=== PATIENT | female | born 1950 | race Caucasian/White ===

== ENCOUNTER 2023-02-03 10:06 | Inpatient (IN) | payer MEDICARE ==
[~2023-02-03] VITALS: Ht 162.6 cm; Wt 88.0 kg
[2023-02-03] MEDS ORDERED: IPRATROPIUM NEB FS 0.5 MG/2.5 ML AMPUL.NEB NEB ONE (10:30)
[2023-02-03] MEDS ORDERED: ALBUTEROL FS 2.5 MG/3 ML VIAL.NEB CONTNEB ONE (10:30)
[2023-02-03] MEDS ORDERED: methylPREDNISolone SOD SUCC 125 MG/2ML VIAL IV ONE (10:30)
[2023-02-03] MEDS ORDERED: methylPREDNISolone SOD SUCC 125 MG/2ML VIAL ONE (10:33)
[2023-02-03 11:02] LABS: BASOPHILS % (AUTO) 0.1 % (0.0-2.0); EOSINOPHILS % (AUTO) 0.1 % (0.0-6.0); HEMATOCRIT 27 % (33-45); MEAN CORPUSCULAR HGB CONC 34 g/dl (31.0-36.0); MEAN CORPUSCULAR VOLUME 91 fL (82-100); MONOCYTES # (AUTO) 1.4 K/uL (0.1-1.30); MONOCYTES % (AUTO) 14.9 % (2.0-12.0); NEUTROPHILS % (AUTO) 73.9 % (43.0-81.0); PLATELET COUNT (AUTO) 271 K/uL (150-450); RED BLOOD CELL COUNT(AUTO) 2.92 MIL/uL (4.0-5.2); WHITE BLOOD COUNT (AUTO) 9.5 K/uL (4.3-11.0)
[2023-02-03 11:03] LABS: CARBON DIOXIDE 22 mmol/L (21-32); CHLORIDE 99 mmol/L (98-107); CREATININE 2.1 mg/dL (0.6-1.3); GLUCOSE 214 mg/dL (74-106); POTASSIUM 4.1 mmol/L (3.5-5.1); SODIUM SERUM 135 mmol/L (136-145); UREA NITROGEN, BLOOD 45 mg/dL (7-18)
[2023-02-03] MEDS ORDERED: ALBUTEROL FS 2.5 MG/3 ML VIAL.NEB ONE (11:38)
[2023-02-03] MEDS ORDERED: DEXTROSE 50%-WATER 50 ML DISP.SYRIN IV PRN (12:00)
[2023-02-03] MEDS ORDERED: ACETAMINOPHEN 325 MG TABLET PO PRN (12:00)
[2023-02-03] MEDS ORDERED: MAGNESIUM HYDROXIDE 30 ML UDC PO PRN (12:00)
[2023-02-03] MEDS ORDERED: Z GUARD REMEDY 4 OZ OINT TP PRN (12:00)
[2023-02-03] MEDS ORDERED: MAG HYDROX/AL HYDROX/SIMETH 30 ML UDC PO PRN (12:00)
[2023-02-03] MEDS ORDERED: ONDANSETRON HCL/PF 4 MG/2 ML VIAL IVP PRN (12:00)
[2023-02-03] MEDS ORDERED: ASPIRIN 81 MG TAB.CHEW PO STA (12:57)
[2023-02-03] MEDS ORDERED: FUROSEMIDE 40 MG/4 ML VIAL IV STA (12:57)
[2023-02-03 14:30] VITALS: BP 143/48
[2023-02-03] MEDS ORDERED: CLOP75TA15 PO (14:44)
[2023-02-03] MEDS ORDERED: DEXL60CA3 PO (14:44)
[2023-02-03] MEDS ORDERED: MODAFINIL PO (14:44)
[2023-02-03] MEDS ORDERED: AMLO-212 PO (14:44)
[2023-02-03] MEDS ORDERED: CARB1TAB21 PO (14:44)
[2023-02-03] MEDS ORDERED: EZET10TA32 PO (14:44)
[2023-02-03] MEDS ORDERED: FURO40TA5 PO (14:44)
[2023-02-03] MEDS ORDERED: PREG-57 PO (14:44)
[2023-02-03] MEDS ORDERED: LATA2.5D15 EACHEYE (14:44)
[2023-02-03] MEDS ORDERED: TIMO5DRO18 RIGHTEYE (14:44)
[2023-02-03] MEDS ORDERED: LISI40TA13 PO (14:44)
[2023-02-03] MEDS ORDERED: BUPR-54 PO (14:44)
[2023-02-03] MEDS ORDERED: SERT50TA12 PO (14:44)
[2023-02-03] MEDS ORDERED: ASPI-1420 PO (14:44)
[2023-02-03] MEDS ORDERED: INSULIN PUMP SQ (14:45)
[2023-02-03] MEDS: FUROSEMIDE 40 MG/4 ML VIAL IV SCH ×3 (14:57→21:51)
[2023-02-03] MEDS: NITROGLYCERIN PACKET 1 GM PACKET TD SCH ×2 (15:03→21:52)
[2023-02-03] MEDS: BLOOD SUGAR DIAGNOSTIC 1 EACH STRIP VI SCH ×3 (17:12→22:17)
[2023-02-03] MEDS: INSULIN REGULAR, HUMAN 100 UNIT/ML 3 ML VIAL SQ PRN (17:13)
[2023-02-03] MEDS ORDERED: PREGABALIN 25 MG CAPSULE PO SCH (18:00)
[2023-02-03 20:00] VITALS: BP 152/60
[2023-02-03] MEDS ORDERED: GUAIFENESIN 300 MG/15 ML UDC PO PRN (20:30)
[2023-02-03] MEDS ORDERED: ALBUTEROL FS 2.5 MG/3 ML VIAL.NEB NEB PRN (20:30)
[2023-02-03] MEDS: IPRATROPIUM NEB FS 0.5 MG/2.5 ML AMPUL.NEB NEB PRN (20:42)
[2023-02-03] MEDS: *INSULIN REGULAR(HUMULIN R)HUM 100 UNIT/ML VIAL SQ PRN (22:25)
[2023-02-04] VITALS (44 sets, daily range): BP systolic 78–195; BP diastolic 34–109
[2023-02-04] MEDS: NITROGLYCERIN PACKET 1 GM PACKET TD SCH ×3 (05:11→21:34)
[2023-02-04 05:57] LABS: BASOPHILS % (AUTO) 0.3 % (0.0-2.0); HEMATOCRIT 27 % (33-45); HEMOGLOBIN 8.8 g/dL (11.5-14.8); LYMPHOCYTES % (AUTO) 12.1 % (20.0-44.0); MEAN CORPUSCULAR HGB CONC 33 g/dl (31.0-36.0); MEAN CORPUSCULAR VOLUME 94 fL (82-100); MONOCYTES % (AUTO) 11.7 % (2.0-12.0); NEUTROPHILS # (AUTO) 6.3 K/uL (1.8-8.9); NEUTROPHILS % (AUTO) 75.9 % (43.0-81.0); PLATELET COUNT (AUTO) 262 K/uL (150-450); RED BLOOD CELL COUNT(AUTO) 2.91 MIL/uL (4.0-5.2); WHITE BLOOD COUNT (AUTO) 8.3 K/uL (4.3-11.0)
[2023-02-04 06:11] LABS: ABG BASE EXCESS -5.6 mmol/L; ABG OXYGEN SATURATION 91.3 % (92.0-98.5); ABG PCO2 33.1 mmHg (35.0-45.0); ABG PH 7.373 (7.350-7.450); ABG PO2 66.7 mmHg (75.0-100.0); AaDO2 613.2 mmHg; COHb 0.3 % (0.5-1.5); MetHb 0.2 % (0.0-1.5); O2Hb 90.8 % (94.0-97.0); SITE, ABG Right Radial
[2023-02-04] MEDS: INSULIN REGULAR, HUMAN 100 UNIT/ML 3 ML VIAL SQ PRN ×2 (06:25→17:14)
[2023-02-04 06:27] LABS: CARBON DIOXIDE 22 mmol/L (21-32); CHLORIDE 99 mmol/L (98-107); CREATININE 2.7 mg/dL (0.6-1.3); MAGNESIUM 2.1 mg/dL (1.8-2.4); POTASSIUM 4.6 mmol/L (3.5-5.1); SODIUM SERUM 134 mmol/L (136-145); UREA NITROGEN, BLOOD 63 mg/dL (7-18)
[2023-02-04 06:44] LABS: GLUCOSE 367 mg/dL (74-106)
[2023-02-04] MEDS: BLOOD SUGAR DIAGNOSTIC 1 EACH STRIP VI SCH ×4 (07:31→21:43)
[2023-02-04] MEDS ORDERED: VANCOMYCIN 1.5 GM in IV D5W 500 ML IV ONE (08:00)
[2023-02-04] MEDS: IV NS 0.9% 250 ML IV PRN (08:39)
[2023-02-04] MEDS: ASPIRIN EC 81 MG TABLET.DR PO SCH (08:43)
[2023-02-04] MEDS: CARBIDOPA/LEVODOPA 25/100 MG 1 UDTAB PO SCH ×2 (08:44→12:07)
[2023-02-04] MEDS: BUPROPION XL 150 MG TAB.ER.24 PO SCH (08:44)
[2023-02-04] MEDS ORDERED: LISINOPRIL (20MG) 20 MG TABLET PO SCH (09:00)
[2023-02-04] MEDS ORDERED: CLOPIDOGREL BISULFATE 75 MG TABLET PO SCH (09:00)
[2023-02-04] MEDS ORDERED: AMLODIPINE BESYLATE 5 MG TABLET PO SCH (09:00)
[2023-02-04] MEDS: CEFEPIME 2 GM in IV D5W 100 ML IV SCH (09:00)
[2023-02-04] MEDS ORDERED: SERTRALINE HCL 50 MG TABLET PO SCH (09:00)
[2023-02-04] MEDS ORDERED: EZETIMIBE 10 MG TABLET PO SCH (09:00)
[2023-02-04] MEDS ORDERED: LEVOFLOXACIN 750 MG /D5W 150ML 150 ML IV SCH (11:00)
[2023-02-04 11:12] LABS: THYROID STIMULATING HORMONE 1.664 uIU/mL (0.358-3.74)
[2023-02-04] MEDS: IPRATROPIUM NEB FS 0.5 MG/2.5 ML AMPUL.NEB NEB PRN (11:31)
[2023-02-04] MEDS ORDERED: NOREPINEPHRINE 32 MG in IV NS 0.9% 218 ML IV PRN (14:00)
[2023-02-04] MEDS ORDERED: PROPOFOL 100 ML IV PRN (14:00)
[2023-02-04] MEDS ORDERED: PHARMACY TO CHANGE PO MEDS TO GT/NG XX PRN (15:00)
[2023-02-04] MEDS: PROPOFOL 100 ML IV PRN ×2 (15:07→21:52)
[2023-02-04] MEDS ORDERED: GUAIFENESIN 300 MG/15 ML UDC GT PRN (15:12)
[2023-02-04] MEDS ORDERED: LISINOPRIL (20MG) 20 MG TABLET GT SCH (15:12)
[2023-02-04] MEDS ORDERED: MAGNESIUM HYDROXIDE 30 ML UDC GT PRN (15:13)
[2023-02-04] MEDS ORDERED: MAG HYDROX/AL HYDROX/SIMETH 30 ML UDC GT PRN (15:13)
[2023-02-04] MEDS ORDERED: ACETAMINOPHEN 650 MG/20.3 ML UDC PO PRN (15:30)
[2023-02-04] MEDS: ACETAMINOPHEN 650 MG/20.3 ML UDC GT PRN (15:39)
[2023-02-04] MEDS ORDERED: ETOMIDATE 2 MG/ML VIAL IV ONE (16:32)
[2023-02-04] MEDS ORDERED: ROCURONIUM BROMIDE 50 MG/5 ML IV ONE (16:32)
[2023-02-04 16:57] LABS: ABG BASE EXCESS -11.1 mmol/L; ABG PCO2 51.4 mmHg (35.0-45.0); ABG PH 7.149 (7.350-7.450); ABG PO2 78.2 mmHg (75.0-100.0); AaDO2 583.4 mmHg; COHb 0.1 % (0.5-1.5); MetHb 0.2 % (0.0-1.5); O2Hb 90.7 % (94.0-97.0); PEEP,BG 18 cm H2O; SITE, ABG Right Radial; VT, ABG 500 mL
[2023-02-04] MEDS: CARBIDOPA/LEVODOPA 25/100 MG 1 UDTAB GT SCH (17:24)
[2023-02-04] MEDS: PREGABALIN 25 MG CAPSULE GT SCH (17:24)
[2023-02-04 19:31] LABS: ABG BASE EXCESS -12.1 mmol/L; ABG OXYGEN SATURATION 95.4 % (92.0-98.5); ABG PCO2 33.5 mmHg (35.0-45.0); ABG PH 7.244 (7.350-7.450); AaDO2 588.5 mmHg; MetHb 0.2 % (0.0-1.5); O2Hb 95.2 % (94.0-97.0); PEEP,BG 18 cm H2O; SITE, ABG Right Radial
[2023-02-04] MEDS: *INSULIN REGULAR(HUMULIN R)HUM 100 UNIT/ML VIAL SQ PRN (21:49)
[2023-02-04] MEDS ORDERED: INSULIN GLARGINE, 100 UNIT/ML CARTRIDGE SQ SCH (22:00)
[2023-02-05] VITALS (84 sets, daily range): BP systolic 54–199; BP diastolic 35–106
[2023-02-05] MEDS: PROPOFOL 100 ML IV PRN ×8 (02:22→22:32)
[2023-02-05 03:50] LABS: CALCIUM, SERUM 9.1 mg/dL (8.5-10.1); CARBON DIOXIDE 19 mmol/L (21-32); CHLORIDE 95 mmol/L (98-107); CREATININE 3.9 mg/dL (0.6-1.3); POTASSIUM 4.8 mmol/L (3.5-5.1); SODIUM SERUM 130 mmol/L (136-145); UREA NITROGEN, BLOOD 77 mg/dL (7-18)
[2023-02-05 04:12] LABS: GLUCOSE 464 mg/dL (74-106)
[2023-02-05] MEDS: NITROGLYCERIN PACKET 1 GM PACKET TD SCH ×3 (04:46→21:28)
[2023-02-05] MEDS ORDERED: DEXTROSE 50%-WATER 50 ML DISP.SYRIN IV PRN (05:30)
[2023-02-05] MEDS ORDERED: VANCOMYCIN 500 MG in IV D5W 100 ML IV PRN (06:00)
[2023-02-05] MEDS: BLOOD SUGAR DIAGNOSTIC 1 EACH STRIP IN SCH ×4 (07:36→23:59)
[2023-02-05] MEDS: INSULIN REGULAR, HUMAN 100 UNIT/ML 3 ML VIAL SQ PRN (07:42)
[2023-02-05] MEDS ORDERED: IV 1/2NS 1000 ML 1,000 ML IV PRN (08:00)
[2023-02-05] MEDS: CARBIDOPA/LEVODOPA 25/100 MG 1 UDTAB GT SCH ×3 (08:05→16:51)
[2023-02-05] MEDS: AMLODIPINE BESYLATE 5 MG TABLET GT SCH (08:05)
[2023-02-05] MEDS: SERTRALINE HCL 25 MG TABLET GT SCH (08:05)
[2023-02-05] MEDS: EZETIMIBE 10 MG TABLET GT SCH (08:05)
[2023-02-05] MEDS: ASPIRIN EC 81 MG TABLET.DR PO SCH (08:06)
[2023-02-05] MEDS: CLOPIDOGREL BISULFATE 75 MG TABLET GT SCH (08:06)
[2023-02-05] MEDS: BUPROPION XL 150 MG TAB.ER.24 PO SCH (08:06)
[2023-02-05] MEDS ORDERED: IV NS 0.9% 1,000 ML IV SCH (08:30)
[2023-02-05] MEDS: CEFEPIME 2 GM in IV D5W 100 ML IV SCH (08:31)
[2023-02-05] MEDS: IV NS 0.9% 1,000 ML IV PRN ×2 (08:32→21:14)
[2023-02-05 09:00] LABS: ABG BASE EXCESS -10.4 mmol/L; ABG OXYGEN SATURATION 94.9 % (92.0-98.5); ABG PCO2 28.7 mmHg (35.0-45.0); ABG PH 7.321 (7.350-7.450); ABG PO2 82.1 mmHg (75.0-100.0); AaDO2 602.2 mmHg; COHb 0.1 % (0.5-1.5); MetHb 0.1 % (0.0-1.5); O2Hb 94.7 % (94.0-97.0); PEEP,BG 10 cm H2O; SITE, ABG Right Radial; VT, ABG 525 mL
[2023-02-05] MEDS ORDERED: GLUCERNA 1.2 1,000 ML BOTTLE NG PRN (09:00)
[2023-02-05] MEDS: INSULIN REGULAR, HUMAN 100 UNIT in IV NS 0.9% 99 ML IV PRN ×2 (11:02)
[2023-02-05] MEDS ORDERED: PHENYLEPHRINE 100 MG in IV NS 0.9% 240 ML IV PRN ×2 (14:30→17:30)
[2023-02-05] MEDS ORDERED: AMIODARONE 450 MG in IV D5W 241 ML IV PRN (15:30)
[2023-02-05] MEDS ORDERED: AMIODARONE 150 MG in IV D5W 100 ML IV ONE (15:30)
[2023-02-05] MEDS: ACETAMINOPHEN 650 MG/20.3 ML UDC GT PRN (16:51)
[2023-02-05] MEDS ORDERED: VASOPRESSIN INJ 40 UNIT in IV NS 0.9% 38 ML IV PRN (17:00)
[2023-02-05] MEDS ORDERED: HEPARIN INFUSION/D5W 500 ML IV PRN (17:30)
[2023-02-05] MEDS: PREGABALIN 25 MG CAPSULE GT SCH (17:33)
[2023-02-05] MEDS: VASOPRESSIN INJ 40 UNIT in IV NS 0.9% 38 ML IV PRN (17:34)
[2023-02-05] MEDS ORDERED: NOREPINEPHRINE 32 MG in IV NS 0.9% 218 ML IV PRN (20:00)
[2023-02-05] MEDS ORDERED: VANCOMYCIN 1 GM in IV D5W 250 ML IV SCH (20:00)
[2023-02-05] MEDS: DOXYCYCLINE 100 MG in IV D5W 100 ML IV SCH (21:26)
[2023-02-05] MEDS: NOREPINEPHRINE 32 MG in IV NS 0.9% 218 ML IV PRN ×2 (21:35→23:05)
[2023-02-05] MEDS ORDERED: INSULIN GLARGINE, 100 UNIT/ML CARTRIDGE SQ SCH (22:00)
[2023-02-05] MEDS: IV NS 0.9% 1,000 ML IV SCH (23:48)
[2023-02-06] VITALS (81 sets, daily range): BP systolic 66–183; BP diastolic 32–124
[2023-02-06] MEDS: PROPOFOL 100 ML IV PRN ×12 (01:04→23:31)
[2023-02-06] MEDS: INSULIN REGULAR, HUMAN 100 UNIT/ML 3 ML VIAL SQ PRN ×2 (04:07→06:08)
[2023-02-06 05:00] LABS: BASOPHILS # (AUTO) 0.1 K/uL (0.0-0.2); BASOPHILS % (AUTO) 0.3 % (0.0-2.0); EOSINOPHILS % (AUTO) 0.1 % (0.0-6.0); HEMATOCRIT 26 % (33-45); HEMOGLOBIN 9.7 g/dL (11.5-14.8); LYMPHOCYTES # (AUTO) 1.5 K/uL (0.8-4.8); MEAN CORPUSCULAR HGB CONC 37 g/dl (31.0-36.0); MEAN CORPUSCULAR VOLUME 91 fL (82-100); MONOCYTES # (AUTO) 0.5 K/uL (0.1-1.30); MONOCYTES % (AUTO) 2.6 % (2.0-12.0); NEUTROPHILS # (AUTO) 16.4 K/uL (1.8-8.9); PLATELET COUNT (AUTO) 306 K/uL (150-450); RED BLOOD CELL COUNT(AUTO) 2.85 MIL/uL (4.0-5.2); WHITE BLOOD COUNT (AUTO) 18.4 K/uL (4.3-11.0)
[2023-02-06 05:03] LABS: CARBON DIOXIDE 19 mmol/L (21-32); CHLORIDE 93 mmol/L (98-107); CREATININE 3.7 mg/dL (0.6-1.3); MAGNESIUM 2.1 mg/dL (1.8-2.4); PHOSPHORUS 4.1 mg/dL (2.5-4.9); POTASSIUM 4.3 mmol/L (3.5-5.1); SODIUM SERUM 127 mmol/L (136-145)
[2023-02-06] MEDS: NITROGLYCERIN PACKET 1 GM PACKET TD SCH ×3 (05:10→20:08)
[2023-02-06 05:19] LABS: GLUCOSE 437 mg/dL (74-106)
[2023-02-06 05:20] LABS: UREA NITROGEN, BLOOD 84 mg/dL (7-18)
[2023-02-06] MEDS: INSULIN REGULAR, HUMAN 100 UNIT in IV NS 0.9% 99 ML IV PRN ×2 (05:25)
[2023-02-06 05:49] LABS: BAND % (MANUAL) 5 % (0.0-5.0); LYMPHOCYTES % (MANUAL) 9 % (16-48); METAMYELOCYTES % 1 % (0-0); NEUTROPHILS % (MANUAL) 85 (42-76)
[2023-02-06] MEDS: BLOOD SUGAR DIAGNOSTIC 1 EACH STRIP IN SCH ×6 (06:02→23:11)
[2023-02-06] MEDS: EZETIMIBE 10 MG TABLET GT SCH (08:05)
[2023-02-06] MEDS: CEFEPIME 1 GM in IV D5W 50 ML IV SCH (08:05)
[2023-02-06] MEDS: ASPIRIN EC 81 MG TABLET.DR PO SCH (08:05)
[2023-02-06] MEDS: SERTRALINE HCL 25 MG TABLET GT SCH (08:05)
[2023-02-06] MEDS: CARBIDOPA/LEVODOPA 25/100 MG 1 UDTAB GT SCH ×3 (08:05→17:07)
[2023-02-06] MEDS: AMLODIPINE BESYLATE 5 MG TABLET GT SCH (08:06)
[2023-02-06] MEDS: BUPROPION XL 150 MG TAB.ER.24 PO SCH (08:07)
[2023-02-06] MEDS: CLOPIDOGREL BISULFATE 75 MG TABLET GT SCH (08:08)
[2023-02-06 08:45] LABS: ABG BASE EXCESS -8.4 mmol/L; ABG PCO2 37.2 mmHg (35.0-45.0); ABG PO2 55.7 mmHg (75.0-100.0); COHb 0.3 % (0.5-1.5); MetHb 0.2 % (0.0-1.5); O2Hb 83.9 % (94.0-97.0); SITE, ABG Right Radial; VENT MODE, BG AC 28 525 +10 100%
[2023-02-06] MEDS: DOXYCYCLINE 100 MG in IV D5W 100 ML IV SCH ×2 (09:38→20:03)
[2023-02-06] MEDS: IV NS 0.9% 1,000 ML IV SCH ×2 (09:59→19:54)
[2023-02-06] MEDS ORDERED: VANCOMYCIN 1 GM in IV D5W 250 ML IV SCH (10:00)
[2023-02-06] MEDS ORDERED: LEVOFLOXACIN 500 MG /D5W 100ML 500 MG in PREMIX 1 EA IV SCH (11:00)
[2023-02-06] MEDS: FENTANYL CITRAT IV 2,500 MCG in IV NS 0.9% 200 ML IV PRN (13:06)
[2023-02-06] MEDS ORDERED: GLUCERNA 1.2 1,000 ML BOTTLE NG PRN (13:54)
[2023-02-06] MEDS: PREGABALIN 25 MG CAPSULE GT SCH (17:07)
[2023-02-06] MEDS: VASOPRESSIN INJ 40 UNIT in IV NS 0.9% 38 ML IV PRN (23:16)
[2023-02-07] VITALS (60 sets, daily range): BP systolic 91–147; BP diastolic 35–52
[2023-02-07] MEDS: BLOOD SUGAR DIAGNOSTIC 1 EACH STRIP IN SCH ×24 (00:09→23:01)
[2023-02-07] MEDS: PROPOFOL 100 ML IV PRN ×4 (01:16→06:54)
[2023-02-07] MEDS: NITROGLYCERIN PACKET 1 GM PACKET TD SCH ×3 (04:34→20:18)
[2023-02-07] MEDS: INSULIN REGULAR, HUMAN 100 UNIT in IV NS 0.9% 99 ML IV PRN ×2 (05:22)
[2023-02-07] MEDS: IV NS 0.9% 1,000 ML IV SCH (05:31)
[2023-02-07 06:36] LABS: CARBON DIOXIDE 18 mmol/L (21-32); CHLORIDE 91 mmol/L (98-107); POTASSIUM 4.6 mmol/L (3.5-5.1); SODIUM SERUM 123 mmol/L (136-145)
[2023-02-07 08:50] LABS: BASOPHILS # (AUTO) 0.2 K/uL (0.0-0.2); BASOPHILS % (AUTO) 0.9 % (0.0-2.0); HEMATOCRIT 23 % (33-45); LYMPHOCYTES % (AUTO) 10.4 % (20.0-44.0); MEAN CORPUSCULAR VOLUME 92 fL (82-100); MONOCYTES # (AUTO) 0.4 K/uL (0.1-1.30); MONOCYTES % (AUTO) 2.3 % (2.0-12.0); NEUTROPHILS # (AUTO) 16.8 K/uL (1.8-8.9); NEUTROPHILS % (AUTO) 86.4 % (43.0-81.0); PLATELET COUNT (AUTO) 239 K/uL (150-450); RED BLOOD CELL COUNT(AUTO) 2.48 MIL/uL (4.0-5.2); WHITE BLOOD COUNT (AUTO) 19.5 K/uL (4.3-11.0)
[2023-02-07] MEDS: SERTRALINE HCL 25 MG TABLET GT SCH (08:54)
[2023-02-07] MEDS: EZETIMIBE 10 MG TABLET GT SCH (08:55)
[2023-02-07] MEDS: CLOPIDOGREL BISULFATE 75 MG TABLET GT SCH (08:55)
[2023-02-07] MEDS: CARBIDOPA/LEVODOPA 25/100 MG 1 UDTAB GT SCH ×3 (08:55→17:58)
[2023-02-07] MEDS: ASPIRIN EC 81 MG TABLET.DR PO SCH (08:56)
[2023-02-07] MEDS: CEFEPIME 1 GM in IV D5W 50 ML IV SCH (08:56)
[2023-02-07] MEDS: AMLODIPINE BESYLATE 5 MG TABLET GT SCH (08:57)
[2023-02-07 09:10] LABS: UREA NITROGEN, BLOOD 90 mg/dL (7-18)
[2023-02-07 09:10] LABS: ABG BASE EXCESS -9.8 mmol/L; ABG PCO2 39.7 mmHg (35.0-45.0); ABG PH 7.244 (7.350-7.450); ABG PO2 80.2 mmHg (75.0-100.0); COHb 0.2 % (0.5-1.5); MetHb 0.4 % (0.0-1.5); O2Hb 92.9 % (94.0-97.0); SITE, ABG Right Radial; VENT MODE, BG AC 28 525 100% +12
[2023-02-07 09:24] LABS: MEAN CORPUSCULAR HGB CONC 32 g/dl (31.0-36.0)
[2023-02-07 09:25] LABS: HEMOGLOBIN 7.4 g/dL (11.5-14.8)
[2023-02-07 09:30] LABS: GLUCOSE 371 mg/dL (74-106)
[2023-02-07] MEDS: MIDAZOLAM HCL 100 MG in IV NS 0.9% 80 ML IV PRN (09:44)
[2023-02-07] MEDS: DOXYCYCLINE 100 MG in IV D5W 100 ML IV SCH ×2 (09:59→21:00)
[2023-02-07 10:05] LABS: BAND % (MANUAL) 3 % (0.0-5.0); LYMPHOCYTES % (MANUAL) 9 % (16-48); MONOCYTES % (MANUAL) 6 % (0-11.0); NEUTROPHILS % (MANUAL) 82 (42-76)
[2023-02-07 12:45] LABS: CALCIUM, SERUM 7.9 mg/dL (8.5-10.1)
[2023-02-07 12:47] LABS: CREATININE 3.2 mg/dL (0.6-1.3)
[2023-02-07 13:02] LABS: ALBUMIN 1.5 g/dL (3.4-5.0); BILIRUBIN,DIRECT 0.6 mg/dL (0.0-0.2); BILIRUBIN,TOTAL 1.1 mg/dL (0.2-1.0)
[2023-02-07] MEDS: NOREPINEPHRINE 32 MG in IV NS 0.9% 218 ML IV PRN (13:17)
[2023-02-07] MEDS: FENTANYL CITRAT IV 2,500 MCG in IV NS 0.9% 200 ML IV PRN (13:17)
[2023-02-07] MEDS: PANTOPRAZOLE 40 MG VIAL IV SCH (13:58)
[2023-02-07] MEDS ORDERED: BUMETANIDE INJ 4 MG in IV NS 0.9% 24 ML IV ONE (14:30)
[2023-02-07] MEDS: IV NS 0.9% 250 ML IV PRN (17:12)
[2023-02-07] MEDS: PREGABALIN 25 MG CAPSULE GT SCH (17:58)
[2023-02-08] VITALS (49 sets, daily range): BP systolic 75–123; BP diastolic 27–50
[2023-02-08] MEDS: BLOOD SUGAR DIAGNOSTIC 1 EACH STRIP IN SCH ×24 (00:03→23:52)
[2023-02-08] MEDS: NITROGLYCERIN PACKET 1 GM PACKET TD SCH ×3 (04:39→20:19)
[2023-02-08] MEDS: INSULIN REGULAR, HUMAN 100 UNIT in IV NS 0.9% 99 ML IV PRN ×2 (05:10)
[2023-02-08] MEDS: MIDAZOLAM HCL 100 MG in IV NS 0.9% 80 ML IV PRN (05:11)
[2023-02-08 05:21] LABS: BASOPHILS % (AUTO) 0.3 % (0.0-2.0); EOSINOPHILS % (AUTO) 3.7 % (0.0-6.0); HEMATOCRIT 22 % (33-45); HEMOGLOBIN 8.6 g/dL (11.5-14.8); LYMPHOCYTES # (AUTO) 1.5 K/uL (0.8-4.8); LYMPHOCYTES % (AUTO) 9.7 % (20.0-44.0); MEAN CORPUSCULAR HGB CONC 40 g/dl (31.0-36.0); MEAN CORPUSCULAR VOLUME 91 fL (82-100); MONOCYTES # (AUTO) 0.4 K/uL (0.1-1.30); MONOCYTES % (AUTO) 2.5 % (2.0-12.0); NEUTROPHILS # (AUTO) 13.4 K/uL (1.8-8.9); NEUTROPHILS % (AUTO) 83.8 % (43.0-81.0); PLATELET COUNT (AUTO) 211 K/uL (150-450); RED BLOOD CELL COUNT(AUTO) 2.36 MIL/uL (4.0-5.2)
[2023-02-08 05:36] LABS: CALCIUM, SERUM 6.5 mg/dL (8.5-10.1); CARBON DIOXIDE 17 mmol/L (21-32); CHLORIDE 92 mmol/L (98-107); CREATININE 3.9 mg/dL (0.6-1.3); GLUCOSE 315 mg/dL (74-106); MAGNESIUM 2.1 mg/dL (1.8-2.4); PHOSPHORUS 7.6 mg/dL (2.5-4.9); POTASSIUM 5.4 mmol/L (3.5-5.1); SODIUM SERUM 125 mmol/L (136-145)
[2023-02-08 05:37] LABS: UREA NITROGEN, BLOOD 106 mg/dL (7-18)
[2023-02-08] MEDS: CEFEPIME 1 GM in IV D5W 50 ML IV SCH (08:14)
[2023-02-08] MEDS: CARBIDOPA/LEVODOPA 25/100 MG 1 UDTAB GT SCH ×3 (08:14→17:21)
[2023-02-08] MEDS: EZETIMIBE 10 MG TABLET GT SCH (08:14)
[2023-02-08] MEDS: DOXYCYCLINE 100 MG in IV D5W 100 ML IV SCH ×2 (08:14→21:00)
[2023-02-08 08:27] LABS: ABG BASE EXCESS -12.8 mmol/L; ABG OXYGEN SATURATION 91.1 % (92.0-98.5); ABG PCO2 42.7 mmHg (35.0-45.0); ABG PH 7.161 (7.350-7.450); ABG PO2 74.3 mmHg (75.0-100.0); AaDO2 487.5 mmHg; COHb 0.1 % (0.5-1.5); MetHb 0.1 % (0.0-1.5); O2Hb 90.9 % (94.0-97.0); SITE, ABG Right Radial; VENT MODE, BG ac 28 525 +12 85%
[2023-02-08] MEDS ORDERED: SODIUM POLYSTYRENE SULFONATE 15 G/60 ML BOTTLE PO ONE (08:30)
[2023-02-08] MEDS: CLOPIDOGREL BISULFATE 75 MG TABLET GT SCH (09:00)
[2023-02-08] MEDS: ASPIRIN EC 81 MG TABLET.DR PO SCH (09:00)
[2023-02-08] MEDS ORDERED: SODIUM POLYSTYRENE SULF. PWD 15 GM UDC PO ONE (11:00)
[2023-02-08] MEDS ORDERED: BUMETANIDE INJ 1 MG in IV NS 0.9% 40 ML IV ONE (11:00)
[2023-02-08] MEDS ORDERED: PANTOPRAZOLE 40 MG/PACK PACK GT SCH (11:00)
[2023-02-08] MEDS: METOCLOPRAMIDE HCL 10 MG/2 ML VIAL IV SCH ×3 (12:22→23:52)
[2023-02-08 13:15] LABS: ABG BASE EXCESS -13.1 mmol/L; ABG OXYGEN SATURATION 92.5 % (92.0-98.5); ABG PCO2 39.4 mmHg (35.0-45.0); ABG PH 7.177 (7.350-7.450); ABG PO2 78.1 mmHg (75.0-100.0); AaDO2 487.1 mmHg; COHb 0.4 % (0.5-1.5); MetHb 0.2 % (0.0-1.5); O2Hb 91.9 % (94.0-97.0); SITE, ABG Right Radial; VENT MODE, BG AC 32 525 +12 85%
[2023-02-08] MEDS: IV NS 0.9% 250 ML IV PRN (13:39)
[2023-02-08] MEDS ORDERED: SODIUM BICARBONATE SYR 50 MEQ/50 ML DISP.SYRIN IV ONE (14:00)
[2023-02-08] MEDS: PANTOPRAZOLE 40 MG VIAL IV SCH (14:11)
[2023-02-08] MEDS: NOREPINEPHRINE 32 MG in IV NS 0.9% 218 ML IV PRN (15:17)
[2023-02-08] MEDS: FENTANYL CITRAT IV 2,500 MCG in IV NS 0.9% 200 ML IV PRN (15:22)
[2023-02-08] MEDS: PREGABALIN 25 MG CAPSULE GT SCH (17:21)
[2023-02-09] VITALS (74 sets, daily range): BP systolic 63–143; BP diastolic 14–76
[2023-02-09] MEDS: MIDAZOLAM HCL 100 MG in IV NS 0.9% 80 ML IV PRN ×2 (00:02→22:17)
[2023-02-09] MEDS: BLOOD SUGAR DIAGNOSTIC 1 EACH STRIP IN SCH ×19 (01:04→23:03)
[2023-02-09] MEDS: NITROGLYCERIN PACKET 1 GM PACKET TD SCH ×3 (04:00→20:22)
[2023-02-09] MEDS: INSULIN REGULAR, HUMAN 100 UNIT in IV NS 0.9% 99 ML IV PRN ×2 (05:07)
[2023-02-09] MEDS: METOCLOPRAMIDE HCL 10 MG/2 ML VIAL IV SCH ×3 (05:08→18:18)
[2023-02-09 05:41] LABS: CALCIUM, SERUM 7.3 mg/dL (8.5-10.1); CARBON DIOXIDE 14 mmol/L (21-32); CHLORIDE 94 mmol/L (98-107); CREATININE 4.7 mg/dL (0.6-1.3); GLUCOSE 219 mg/dL (74-106); MAGNESIUM 2.3 mg/dL (1.8-2.4); POTASSIUM 5.3 mmol/L (3.5-5.1); SODIUM SERUM 127 mmol/L (136-145)
[2023-02-09 06:05] LABS: BASOPHILS # (AUTO) 0.2 K/uL (0.0-0.2); BASOPHILS % (AUTO) 0.6 % (0.0-2.0); EOSINOPHILS % (AUTO) 5.7 % (0.0-6.0); HEMATOCRIT 24 % (33-45); LYMPHOCYTES # (AUTO) 4.8 K/uL (0.8-4.8); LYMPHOCYTES % (AUTO) 16.3 % (20.0-44.0); MEAN CORPUSCULAR VOLUME 90 fL (82-100); MONOCYTES # (AUTO) 1.1 K/uL (0.1-1.30); MONOCYTES % (AUTO) 3.8 % (2.0-12.0); NEUTROPHILS # (AUTO) 21.9 K/uL (1.8-8.9); NEUTROPHILS % (AUTO) 73.6 % (43.0-81.0); PLATELET COUNT (AUTO) 236 K/uL (150-450); RED BLOOD CELL COUNT(AUTO) 2.68 MIL/uL (4.0-5.2); WHITE BLOOD COUNT (AUTO) 29.7 K/uL (4.3-11.0)
[2023-02-09 06:09] LABS: UREA NITROGEN, BLOOD 127 mg/dL (7-18)
[2023-02-09 07:59] LABS: HEMOGLOBIN 7.4 g/dL (11.5-14.8)
[2023-02-09] MEDS ORDERED: AMIODARONE 450 MG in IV D5W 241 ML IV PRN (08:00)
[2023-02-09] MEDS ORDERED: AMIODARONE 150 MG in IV D5W 100 ML IV ONE (08:00)
[2023-02-09 08:02] LABS: MEAN CORPUSCULAR HGB CONC 32 g/dl (31.0-36.0)
[2023-02-09] MEDS ORDERED: IV D5W 1,000 ML IV PRN (08:30)
[2023-02-09] MEDS ORDERED: SODIUM BICARBONATE SYR 50 MEQ/50 ML DISP.SYRIN IV ONE (08:30)
[2023-02-09] MEDS: PHENYLEPHRINE 50 MG in IV NS 0.9% 245 ML IV PRN ×4 (08:44→16:43)
[2023-02-09] MEDS: EZETIMIBE 10 MG TABLET GT SCH (08:45)
[2023-02-09] MEDS: CARBIDOPA/LEVODOPA 25/100 MG 1 UDTAB GT SCH ×3 (08:45→18:17)
[2023-02-09] MEDS: DOXYCYCLINE 100 MG in IV D5W 100 ML IV SCH ×2 (09:38→20:55)
[2023-02-09] MEDS: CEFEPIME 1 GM in IV D5W 50 ML IV SCH (09:38)
[2023-02-09 09:57] LABS: BAND % (MANUAL) 9 % (0.0-5.0); EOSINOPHILS % (MANUAL) 2 % (0-4); LYMPHOCYTES % (MANUAL) 13 % (16-48); MONOCYTES % (MANUAL) 3 % (0-11.0); NEUTROPHILS % (MANUAL) 73 (42-76)
[2023-02-09] MEDS ORDERED: SODIUM BICARBONATE SYR 100 MEQ in IV D5W 1,000 ML IV PRN (10:25)
[2023-02-09] MEDS: VASOPRESSIN INJ 40 UNIT in IV NS 0.9% 38 ML IV PRN ×2 (11:57→23:43)
[2023-02-09] MEDS: Sodium Bicarbonate 100 MEQ in IV D5W 1,000 ML IV SCH (12:27)
[2023-02-09] MEDS: PANTOPRAZOLE 40 MG VIAL IV SCH (13:13)
[2023-02-09] MEDS ORDERED: PHENYLEPHRINE 100 MG in IV NS 0.9% 240 ML IV PRN (14:30)
[2023-02-09] MEDS: NOREPINEPHRINE 32 MG in IV NS 0.9% 218 ML IV PRN (15:00)
[2023-02-09] MEDS: FENTANYL CITRAT IV 2,500 MCG in IV NS 0.9% 200 ML IV PRN (15:42)
[2023-02-09] MEDS: PREGABALIN 25 MG CAPSULE GT SCH (18:17)
[2023-02-09] MEDS: IV NS 0.9% 250 ML IV PRN (18:30)
[2023-02-09] MEDS: PHENYLEPHRINE 100 MG in IV NS 0.9% 240 ML IV PRN (18:32)
[2023-02-10] VITALS (33 sets, daily range): BP systolic 47–95; BP diastolic 16–56
[2023-02-10] MEDS: BLOOD SUGAR DIAGNOSTIC 1 EACH STRIP IN SCH ×9 (00:02→08:08)
[2023-02-10] MEDS: METOCLOPRAMIDE HCL 10 MG/2 ML VIAL IV SCH ×2 (00:05→05:34)
[2023-02-10] MEDS: PHENYLEPHRINE 100 MG in IV NS 0.9% 240 ML IV PRN ×2 (00:20→06:37)
[2023-02-10] MEDS: NOREPINEPHRINE 32 MG in IV NS 0.9% 218 ML IV PRN ×2 (01:19→06:14)
[2023-02-10 03:40] LABS: BASOPHILS # (AUTO) 0.2 K/uL (0.0-0.2); BASOPHILS % (AUTO) 0.4 % (0.0-2.0); EOSINOPHILS % (AUTO) 3.3 % (0.0-6.0); HEMATOCRIT 30 % (33-45); HEMOGLOBIN 9.9 g/dL (11.5-14.8); LYMPHOCYTES # (AUTO) 4.2 K/uL (0.8-4.8); LYMPHOCYTES % (AUTO) 11.4 % (20.0-44.0); MEAN CORPUSCULAR HGB CONC 33 g/dl (31.0-36.0); MEAN CORPUSCULAR VOLUME 90 fL (82-100); MONOCYTES # (AUTO) 0.9 K/uL (0.1-1.30); MONOCYTES % (AUTO) 2.3 % (2.0-12.0); NEUTROPHILS # (AUTO) 30.8 K/uL (1.8-8.9); NEUTROPHILS % (AUTO) 82.6 % (43.0-81.0); PLATELET COUNT (AUTO) 167 K/uL (150-450); RED BLOOD CELL COUNT(AUTO) 3.34 MIL/uL (4.0-5.2)
[2023-02-10 04:00] LABS: CALCIUM, SERUM 7.2 mg/dL (8.5-10.1); CARBON DIOXIDE 14 mmol/L (21-32); CHLORIDE 93 mmol/L (98-107); CREATININE 5.4 mg/dL (0.6-1.3); GLUCOSE 251 mg/dL (74-106); MAGNESIUM 2.3 mg/dL (1.8-2.4); SODIUM SERUM 128 mmol/L (136-145)
[2023-02-10 04:02] LABS: WHITE BLOOD COUNT (AUTO) 37.3 K/uL (4.3-11.0)
[2023-02-10 04:03] LABS: UREA NITROGEN, BLOOD 142 mg/dL (7-18)
[2023-02-10 04:22] LABS: PHOSPHORUS 11.7 mg/dL (2.5-4.9)
[2023-02-10] MEDS: NITROGLYCERIN PACKET 1 GM PACKET TD SCH (05:00)
[2023-02-10] MEDS: Sodium Bicarbonate 100 MEQ in IV D5W 1,000 ML IV SCH (05:04)
[2023-02-10 05:34] LABS: BAND % (MANUAL) 7 % (0.0-5.0); BASOPHILS % (MANUAL) 0 % (0.0-2.0); EOSINOPHILS % (MANUAL) 3 % (0-4); LYMPHOCYTES % (MANUAL) 9 % (16-48); MONOCYTES % (MANUAL) 5 % (0-11.0); NEUTROPHILS % (MANUAL) 76 (42-76)
[2023-02-10] MEDS ORDERED: PHENYLEPHRINE 10 MG/ML VIAL ONE (06:15)
[2023-02-10] MEDS: INSULIN REGULAR, HUMAN 100 UNIT in IV NS 0.9% 99 ML IV PRN ×2 (07:27)
[2023-02-10] MEDS: CEFEPIME 1 GM in IV D5W 50 ML IV SCH (08:24)
[2023-02-10] MEDS: EZETIMIBE 10 MG TABLET GT SCH (08:24)
[2023-02-10] MEDS: CARBIDOPA/LEVODOPA 25/100 MG 1 UDTAB GT SCH (08:24)
== END 2023-02-10 11:31 | DRG 870 ==
LOC: ER 10:10 → TELE 12:51 → ICU 02-04 07:07
PROVIDERS: ADMIT Internal Medicine
PROC: 5A1955Z Respiratory Ventilation, Greater than 96 Consecutive Hours (ICD-10-PCS; principal; 2023-02-04)
PROC: 0BH17EZ Insertion of Endotracheal Airway into Trachea, Via Natural or Artificial Opening (ICD-10-PCS; 2023-02-04)
PROC: 5A09357 Assistance with Respiratory Ventilation, Less than 24 Consecutive Hours, Continuous Positive Airway Pressure (ICD-10-PCS; 2023-02-04)
PROC: 05HB33Z Insertion of Infusion Device into Right Basilic Vein, Percutaneous Approach (ICD-10-PCS; 2023-02-04)
PROC: 02HV33Z Insertion of Infusion Device into Superior Vena Cava, Percutaneous Approach (ICD-10-PCS; 2023-02-05)
PROC: B548ZZA Ultrasonography of Superior Vena Cava, Guidance (ICD-10-PCS; 2023-02-05)
PROC: 30233N1 Transfusion of Nonautologous Red Blood Cells into Peripheral Vein, Percutaneous Approach (ICD-10-PCS; 2023-02-08)
DX: A41.9 Sepsis, unspecified organism (principal); I21.A1 Myocardial infarction type 2; J96.01 Acute respiratory failure with hypoxia; I50.23 Acute on chronic systolic (congestive) heart failure; N17.0 Acute kidney failure with tubular necrosis; R65.21 Severe sepsis with septic shock; J69.0 Pneumonitis due to inhalation of food and vomit; J15.6 Pneumonia due to other Gram-negative bacteria; I13.0 Hypertensive heart and chronic kidney disease with heart failure and stage 1 through stage 4 chronic kidney disease, or unspecified chronic kidney disease; E87.20 Acidosis, unspecified; E87.1 Hypo-osmolality and hyponatremia; K92.2 Gastrointestinal hemorrhage, unspecified; N18.9 Chronic kidney disease, unspecified; D63.8 Anemia in other chronic diseases classified elsewhere; Z20.822 Contact with and (suspected) exposure to COVID-19; Z88.0 Allergy status to penicillin; Z88.2 Allergy status to sulfonamides; Z88.8 Allergy status to other drugs, medicaments and biological substances; I25.10 Atherosclerotic heart disease of native coronary artery without angina pectoris; Z95.1 Presence of aortocoronary bypass graft; Z95.5 Presence of coronary angioplasty implant and graft; I27.20 Pulmonary hypertension, unspecified; E11.65 Type 2 diabetes mellitus with hyperglycemia; Z96.41 Presence of insulin pump (external) (internal); Z79.4 Long term (current) use of insulin; Z66 Do not resuscitate; E66.9 Obesity, unspecified; Z68.31 Body mass index [BMI] 31.0-31.9, adult; E78.1 Pure hyperglyceridemia; T41.295A Adverse effect of other general anesthetics, initial encounter; Y92.9 Unspecified place or not applicable; I48.0 Paroxysmal atrial fibrillation; Z79.899 Other long term (current) drug therapy; Z79.02 Long term (current) use of antithrombotics/antiplatelets; Z79.82 Long term (current) use of aspirin
CPT/HCPCS: 31720; 36410; 36415; 36569; 36600; 71045-TC; 76770-TC; 80048-TC; 80076-TC; 80202-TC; 82272-TC; 82803-TC; 82962-TC; 83540-TC; 83605-TC; 83735-TC; 83880; 84100-TC; 84443-TC; 84478-TC; 84484-TC; 85025-TC; 85730-TC; 86850-TC; 87040-TC; 87081-TC; 93307-TC; 94002-TC; 94003-TC; 94660; 94799-TC; A4216; A4223; C9113; C9803; G0378; J0282; J0692; J1644; J1815; J1940; J1956; J2250; J2370; J2765; J2930; J3010; J3370; J3490; J7030; J7040; J7042; J7050; J7060; J7070; P9016